=== PATIENT | female | born 1960 | race Caucasian/White ===

== ENCOUNTER → 2017-06-05 | Outpatient (CLI) | payer MEDICARE, OTHER ==
[~2017-06-05] MED LIST: ACET325 PO; ACETYLCYST200 MG/1 M INH; ALBUIS INH; ALPR.5; BUPR100; BUPR150ER PO; Bentyl20 MG PO; CARB200 PO; CEPH500 PO; CETI10; CHOL10002 PO; CITA20 PO; CLAR500; DIPATR PO; DIPH50 PO; DOC250; DOCCAL240 PO; DOCU100; DOXA4 PO; Duoneb 2.5-0.5 M3 ML INH; ESTR1 PO; ESTR2; ESTR2 PO; ESTRACE PO; Estradiol1 MG PO; FAMO20; FAMO20 PO; FEXO60 PO; FLUC150A; FLUN25SP; FLUSAL2505 INH; FLUT.05NI; Fludrocortison0.1 MG PO; GABA100; GABA300; GABA400 PO; GABA800 PO; HYDACE10B PO; HYDACE5 PO; HYOS0.375T; LINE600 PO; LORA1; MAALOX; MAGOXI400 PO; MECL25 PO; MEDRIN; METO5A PO; MOM; MORP15ER; MORP30ER; MYRBETRIQ50 MG PO; NITR100CA PO; NORT10; NORT50 PO; Norco 10-325 T1 EACH PO; OMEP20ER; OMEP20ER PO; OMEP40CA12 PO; ONDA4 PO; OXYACE5C; OXYACE5T PO; OXYB5 PO; OXYB5ER PO; OXYBUTYNIN PO; OXYC5; PARO20; PHENA200 PO; PHENY100ER; POLY500; POTCHL10ER PO; POTCHL20ER PO; PRED10; PROM25; PROM25 PO; PROM25S PO; Percocet 5-3251 EACH PO; QUIN260 PO; RXOXYACE PO; SAVELLA PO; SENN187 PO; TEMA15; TRAM50 PO; TRAZ100 PO; TRAZ50 PO; TRIHYD253A; TYLENOL; VALA500 PO; VENL75 PO; Vibramycin100 MG PO; ZPAK; [UNRECOGNIZED DRUG - OTHER] PO
[2017-06-06 12:09] LABS: Adenovirus F 40/41 Not Detected (NOT DETECT); Astrovirus Not Detected (NOT DETECT); Campylobacter Sp Not Detected (NOT DETECT); Cryptosporidium Not Detected (NOT DETECT); Cyclospora Cayetanensis Not Detected (NOT DETECT); E. Coli O157 Not Detected (NOT DETECT); Entamoeba Histolytica Not Detected (NOT DETECT); Enteroaggregative E. coli-EAEC Not Detected (NOT DETECT); Enteropathogenic E. coli-EPEC Not Detected (NOT DETECT); Enterotoxigenic E. coli-ETEC Not Detected (NOT DETECT); Giardia Lamblia Not Detected (NOT DETECT); Norovirus GI/GII Not Detected (NOT DETECT); Plesiomonas Shigelloides Not Detected (NOT DETECT); Rotavirus A Not Detected (NOT DETECT); Salmonella Sp Not Detected (NOT DETECT); Sapovirus Not Detected (NOT DETECT); Shiga Toxin-prod E. coli-STEC Not Detected (NOT DETECT); Shigella/Enteroin E. coli-EIEC Not Detected (NOT DETECT); Vibrio Cholerae Not Detected (NOT DETECT); Vibrio Sp Not Detected (NOT DETECT); Yersinia Enterocolitica Not Detected (NOT DETECT)
== END ==
LOC: LAB EV 15:00
PROVIDERS: Nurse Practitioner Family
DX: R19.7 Diarrhea, unspecified (principal)
CPT/HCPCS: 87507

== ENCOUNTER 2017-06-08 07:30 | Emergency (ER) | payer MEDICARE, OTHER ==
[~2017-06-08] VITALS: Ht 165.1 cm; Wt 68.0 kg
[~2017-06-08 07:30] MED LIST changes: -Bentyl20 MG PO; -Vibramycin100 MG PO
[2017-06-08] MEDS ORDERED: Bentyl20 MG PO (07:47)
[2017-06-08] MEDS ORDERED: Vibramycin100 MG PO (08:04)
== END 2017-06-08 08:10 | disposition home or self-care (01) ==
LOC: ER 07:30
DX: S00.462A Insect bite (nonvenomous) of left ear, initial encounter (principal); H60.12 Cellulitis of left external ear; I10 Essential (primary) hypertension; F17.210 Nicotine dependence, cigarettes, uncomplicated; Z88.0 Allergy status to penicillin; Z88.8 Allergy status to other drugs, medicaments and biological substances; Z88.2 Allergy status to sulfonamides; Z91.040 Latex allergy status; Z91.048 Other nonmedicinal substance allergy status; Z88.6 Allergy status to analgesic agent; Z91.018 Allergy to other foods; Z79.899 Other long term (current) drug therapy; W57.XXXA Bitten or stung by nonvenomous insect and other nonvenomous arthropods, initial encounter
CPT/HCPCS: 69200; 99282

== ENCOUNTER 2017-11-12 15:56 | Emergency (ER) | payer MEDICARE, OTHER ==
[~2017-11-12] VITALS: Ht 165.1 cm; Wt 62.6 kg
[~2017-11-12 15:56] MED LIST changes: +Bentyl20 MG PO; +Vibramycin100 MG PO
[2017-11-12 16:47] LABS: BASOPHILS ABSOLUTE AUTO 0.04 K/mm3 (0.00-0.23); BASOPHILS PERCENT AUTO 1 % (0-2); EOSINOPHILS PERCENT AUTO 1 % (0-6); Hematocrit 40.4 % (33.0-51.0); Hemoglobin 13.3 g/dL (11.5-16.0); IMMATURE GRAN ABSOLUTE AUTO 0.02 K/mm3 (0.00-0.10); IMMATURE GRAN PERCENT AUTO 0 % (0-1); LYMPHOCYTES ABSOLUTE AUTO 3.22 K/mm3 (0.84-5.20); LYMPHOCYTES PERCENT AUTO 39 % (21-46); MONOCYTES ABSOLUTE AUTO 0.43 K/mm3 (0.16-1.47); MONOCYTES PERCENT AUTO 5 % (4-13); Mean Corpuscular HGB 29.4 pg (26.0-34.0); Mean Corpuscular HGB Conc 32.9 g/dL (31.5-36.5); Mean Corpuscular Volume 89 fL (80-100); Mean Platelet Volume 8.6 fL (9.1-12.4); NEUTROPHILS ABSOLUTE AUTO 4.53 K/mm3 (1.96-9.15); NEUTROPHILS PERCENT AUTO 54 % (41-73); Platelet Count 355 K/mm3 (150-400); RDW Coefficient Variation 13.8 % (11.7-14.2); RDW Standard Deviation 44.9 fL (35.1-46.3); Red Blood Cell Count 4.53 M/mm3 (3.80-5.20); White Blood Cell Count 8.34 K/mm3 (4.00-11.30)
[2017-11-12 17:11] LABS: Alanine Aminotransfer (ALT/SGP 22 U/L (12-78); Alk Phos 68 U/L (50-136); Anion Gap 5 mmol/L (6-16); Aspartate Aminotrans (AST/SGOT 16 U/L (12-37); Bilirubin, Total 0.2 mg/dL (0.1-1.0); Blood Urea Nitrogen 16 mg/dL (8-24); Bun/Creatinine Ratio 17.5 (12.0-20.0); CO2, Blood 28 mmol/L (21-32); Calcium, Blood 8.9 mg/dL (8.5-10.1); Chloride, Blood 104 mmol/L (98-108); Creatinine, Blood 0.91 mg/dL (0.40-1.00); Globulin, Blood 3.9 g/dL (2.2-4.0); Glomerular Filtration Rate >60 (60-); Glucose, Blood 74 mg/dL (70-99); Potassium, Blood 3.7 mmol/L (3.5-5.5); Sodium, Blood 137 mmol/L (136-145); Total Protein, Blood 7.9 g/dL (6.4-8.2)
[2017-11-12] MEDS ORDERED: ESOM20 PO (17:56)
[2017-11-12] MEDS ORDERED: Percocet 5-3251 EACH PO (17:56)
== END 2017-11-12 18:10 | disposition home or self-care (01) ==
LOC: ER 15:56
PROVIDERS: Emergency Medicine
DX: K29.70 Gastritis, unspecified, without bleeding (principal); I10 Essential (primary) hypertension; G40.909 Epilepsy, unspecified, not intractable, without status epilepticus; F17.210 Nicotine dependence, cigarettes, uncomplicated; Z79.899 Other long term (current) drug therapy
CPT/HCPCS: 36415; 80053; 83690; 85025; 93005; 93010; 96374; 99284-25; J2405

== ENCOUNTER → 2018-09-01 | Outpatient (CLI) | payer OTHER, MEDICARE ==
[~2018-09-01] MED LIST changes: +ESOM20 PO
[2018-09-01 17:24] LABS: BASOPHILS ABSOLUTE AUTO 0.04 K/mm3 (0.00-0.23); BASOPHILS PERCENT AUTO 1 % (0-2); EOSINOPHILS ABSOLUTE AUTO 0.09 K/mm3 (0.00-0.68); EOSINOPHILS PERCENT AUTO 1 % (0-6); Hematocrit 39.1 % (33.0-51.0); Hemoglobin 13.2 g/dL (11.5-16.0); IMMATURE GRAN ABSOLUTE AUTO 0.02 K/mm3 (0.00-0.10); IMMATURE GRAN PERCENT AUTO 0 % (0-1); LYMPHOCYTES ABSOLUTE AUTO 3.22 K/mm3 (0.84-5.20); LYMPHOCYTES PERCENT AUTO 52 % (21-46); MONOCYTES ABSOLUTE AUTO 0.41 K/mm3 (0.16-1.47); MONOCYTES PERCENT AUTO 7 % (4-13); Mean Corpuscular HGB 30.2 pg (26.0-34.0); Mean Corpuscular HGB Conc 33.8 g/dL (31.5-36.5); Mean Corpuscular Volume 90 fL (80-100); NEUTROPHILS ABSOLUTE AUTO 2.45 K/mm3 (1.96-9.15); NEUTROPHILS PERCENT AUTO 39 % (41-73); Platelet Count 344 K/mm3 (150-400); RDW Coefficient Variation 13.3 % (11.7-14.2); RDW Standard Deviation 43.8 fL (35.1-46.3); Red Blood Cell Count 4.37 M/mm3 (3.80-5.20); White Blood Cell Count 6.23 K/mm3 (4.00-11.30)
[2018-09-01 17:43] LABS: Alanine Aminotransfer (ALT/SGP 18 U/L (12-78); Albumin, Blood 3.7 g/dL (3.4-5.0); Albumin/Globulin Ratio 1.1 (0.8-1.8); Alk Phos 75 U/L (40-126); Anion Gap 7 mmol/L (6-16); Aspartate Aminotrans (AST/SGOT 14 U/L (12-37); Bilirubin, Total 0.2 mg/dL (0.1-1.0); Blood Urea Nitrogen 14 mg/dL (8-24); Bun/Creatinine Ratio 12.7 (12.0-20.0); CO2, Blood 30 mmol/L (21-32); Calcium, Blood 8.6 mg/dL (8.5-10.1); Chloride, Blood 106 mmol/L (98-108); Globulin, Blood 3.4 g/dL (2.2-4.0); Glomerular Filtration Rate 51 (60-); Glucose, Blood 90 mg/dL (70-99); Potassium, Blood 3.3 mmol/L (3.5-5.5); Sodium, Blood 143 mmol/L (136-145); Thyroid Stimulating Hormone 1.044 uIU/mL (0.360-4.800); Total Protein, Blood 7.1 g/dL (6.4-8.2)
[2018-09-01 17:45] LABS: Troponin I <0.017 ng/mL (0.000-0.040)
== END | disposition home or self-care (01) ==
LOC: LAB EV 17:19 → LAB SHORT 17:19
PROVIDERS: Family Medicine
DX: R53.83 Other fatigue (principal)
CPT/HCPCS: 80053; 84443; 84484; 85025

== ENCOUNTER → 2020-09-28 | Outpatient (CLI) | payer OTHER ==
[2020-09-28 14:13] LABS: BASOPHILS ABSOLUTE AUTO 0.05 K/mm3 (0.00-0.23); BASOPHILS PERCENT AUTO 0 % (0-2); Hematocrit 39.4 % (33.0-51.0); Hemoglobin 13.2 g/dL (11.5-16.0); LYMPHOCYTES ABSOLUTE AUTO 0.92 K/mm3 (0.84-5.20); LYMPHOCYTES PERCENT AUTO 4 % (21-46); MONOCYTES ABSOLUTE AUTO 0.65 K/mm3 (0.16-1.47); MONOCYTES PERCENT AUTO 3 % (4-13); Mean Corpuscular HGB 30.8 pg (26.0-34.0); Mean Corpuscular HGB Conc 33.5 g/dL (31.5-36.5); Mean Corpuscular Volume 92 fL (80-100); Mean Platelet Volume 8.9 fL (9.1-12.4); Platelet Count 293 K/mm3 (150-400); RDW Coefficient Variation 13.9 % (11.7-14.2); RDW Standard Deviation 46.6 fL (35.1-46.3); Red Blood Cell Count 4.29 M/mm3 (3.80-5.20); White Blood Cell Count 22.15 K/mm3 (4.00-11.30)
[2020-09-28 14:14] LABS: EOSINOPHILS ABSOLUTE AUTO 0.11 K/mm3 (0.00-0.68); EOSINOPHILS PERCENT AUTO 1 % (0-6); IMMATURE GRAN ABSOLUTE AUTO 0.22 K/mm3 (0.00-0.10); IMMATURE GRAN PERCENT AUTO 1 % (0-1); NEUTROPHILS PERCENT AUTO 91 % (41-73)
[2020-09-28 14:18] LABS: Anion Gap 7 mmol/L (6-16); Blood Urea Nitrogen 21 mg/dL (8-24); Bun/Creatinine Ratio 23.6 (12.0-20.0); CO2, Blood 28 mmol/L (21-32); Calcium, Blood 8.8 mg/dL (8.5-10.1); Chloride, Blood 103 mmol/L (98-108); Creatinine, Blood 0.89 mg/dL (0.40-1.00); Glomerular Filtration Rate >60 (60-); Glucose, Blood 150 mg/dL (70-99); Sodium, Blood 138 mmol/L (136-145)
== END ==
LOC: PLD 14:08 → LAB SHORT 14:08
PROVIDERS: Physician Assistant Surgical
DX: R05 Cough (principal); Z88.0 Allergy status to penicillin; Z88.2 Allergy status to sulfonamides; Z88.6 Allergy status to analgesic agent; Z91.048 Other nonmedicinal substance allergy status; Z91.040 Latex allergy status; Z91.018 Allergy to other foods; Z88.5 Allergy status to narcotic agent
CPT/HCPCS: 80048; 85025

== ENCOUNTER → 2020-09-29 | Outpatient (CLI) | payer OTHER ==
[2020-09-29 11:53] LABS: BASOPHILS ABSOLUTE AUTO 0.04 K/mm3 (0.00-0.23); BASOPHILS PERCENT AUTO 0 % (0-2); EOSINOPHILS ABSOLUTE AUTO 0.08 K/mm3 (0.00-0.68); EOSINOPHILS PERCENT AUTO 1 % (0-6); Hematocrit 36.6 % (33.0-51.0); Hemoglobin 12.3 g/dL (11.5-16.0); IMMATURE GRAN ABSOLUTE AUTO 0.07 K/mm3 (0.00-0.10); IMMATURE GRAN PERCENT AUTO 0 % (0-1); LYMPHOCYTES ABSOLUTE AUTO 3.02 K/mm3 (0.84-5.20); LYMPHOCYTES PERCENT AUTO 19 % (21-46); MONOCYTES ABSOLUTE AUTO 0.75 K/mm3 (0.16-1.47); MONOCYTES PERCENT AUTO 5 % (4-13); Mean Corpuscular HGB 30.8 pg (26.0-34.0); Mean Corpuscular HGB Conc 33.6 g/dL (31.5-36.5); Mean Corpuscular Volume 92 fL (80-100); Mean Platelet Volume 8.8 fL (9.1-12.4); NEUTROPHILS ABSOLUTE AUTO 12.24 K/mm3 (1.96-9.15); NEUTROPHILS PERCENT AUTO 76 % (41-73); Platelet Count 302 K/mm3 (150-400); RDW Standard Deviation 46.5 fL (35.1-46.3)
[2020-09-29 11:57] LABS: Anion Gap 6 mmol/L (6-16); Blood Urea Nitrogen 24 mg/dL (8-24); Bun/Creatinine Ratio 29.6 (12.0-20.0); CO2, Blood 29 mmol/L (21-32); Calcium, Blood 8.6 mg/dL (8.5-10.1); Chloride, Blood 105 mmol/L (98-108); Creatinine, Blood 0.81 mg/dL (0.40-1.00); Glomerular Filtration Rate >60 (60-); Glucose, Blood 93 mg/dL (70-99); Potassium, Blood 3.8 mmol/L (3.5-5.5); Sodium, Blood 140 mmol/L (136-145)
== END ==
LOC: LAB 11:47 → LAB SHORT 11:47
PROVIDERS: Physician Assistant Surgical
DX: J18.9 Pneumonia, unspecified organism (principal); Z88.0 Allergy status to penicillin; Z88.2 Allergy status to sulfonamides; Z88.6 Allergy status to analgesic agent; Z88.5 Allergy status to narcotic agent; Z91.048 Other nonmedicinal substance allergy status; Z91.040 Latex allergy status; Z91.018 Allergy to other foods
CPT/HCPCS: 80048; 85025

== ENCOUNTER → 2020-09-30 | Outpatient (CLI) | payer OTHER ==
[2020-09-30 11:46] LABS: BASOPHILS ABSOLUTE AUTO 0.06 K/mm3 (0.00-0.23); BASOPHILS PERCENT AUTO 1 % (0-2); EOSINOPHILS ABSOLUTE AUTO 0.15 K/mm3 (0.00-0.68); EOSINOPHILS PERCENT AUTO 1 % (0-6); Hematocrit 34.2 % (33.0-51.0); Hemoglobin 11.4 g/dL (11.5-16.0); IMMATURE GRAN ABSOLUTE AUTO 0.06 K/mm3 (0.00-0.10); IMMATURE GRAN PERCENT AUTO 1 % (0-1); LYMPHOCYTES ABSOLUTE AUTO 2.75 K/mm3 (0.84-5.20); LYMPHOCYTES PERCENT AUTO 24 % (21-46); MONOCYTES ABSOLUTE AUTO 0.76 K/mm3 (0.16-1.47); MONOCYTES PERCENT AUTO 7 % (4-13); Mean Corpuscular HGB 30.6 pg (26.0-34.0); Mean Corpuscular HGB Conc 33.3 g/dL (31.5-36.5); Mean Corpuscular Volume 92 fL (80-100); Mean Platelet Volume 8.7 fL (9.1-12.4); NEUTROPHILS ABSOLUTE AUTO 7.85 K/mm3 (1.96-9.15); NEUTROPHILS PERCENT AUTO 68 % (41-73); Platelet Count 269 K/mm3 (150-400); RDW Coefficient Variation 13.9 % (11.7-14.2); RDW Standard Deviation 46.6 fL (35.1-46.3); Red Blood Cell Count 3.73 M/mm3 (3.80-5.20); White Blood Cell Count 11.63 K/mm3 (4.00-11.30)
== END ==
LOC: LAB SHORT 11:42 → LAB 11:42
PROVIDERS: Physician Assistant Medical
DX: R07.81 Pleurodynia (principal); Z88.0 Allergy status to penicillin; Z88.2 Allergy status to sulfonamides; Z88.1 Allergy status to other antibiotic agents; Z88.6 Allergy status to analgesic agent; Z91.048 Other nonmedicinal substance allergy status; Z91.040 Latex allergy status; Z91.018 Allergy to other foods; Z20.822 Contact with and (suspected) exposure to COVID-19
CPT/HCPCS: 85025; 85379; U0003

== ENCOUNTER → 2021-06-03 | Outpatient (CLI) | payer OTHER ==
[~2021-06-03] MED LIST changes: +ALBU4 PO; +LIDO700A20 TOP; +NAPROXEN250 M1 PO; +Prilosec Otc20 MG PO; +SERT25 PO; +Ventolin5 MG/1 ML INH
== END | disposition home or self-care (01) ==
LOC: LAB SHORT 14:01 → LAB 14:01
DX: M79.672 Pain in left foot (principal)
CPT/HCPCS: 84550

== ENCOUNTER 2021-08-04 11:40 | Emergency (ER) | payer OTHER ==
[~2021-08-04] VITALS: Ht 165.1 cm; Wt 66.2 kg
[2021-08-04 12:14] LABS: BASOPHILS ABSOLUTE AUTO 0.02 K/mm3 (0.00-0.23); BASOPHILS PERCENT AUTO 0 % (0-2); EOSINOPHILS ABSOLUTE AUTO 0.02 K/mm3 (0.00-0.68); EOSINOPHILS PERCENT AUTO 0 % (0-6); Hemoglobin 13.2 g/dL (11.5-16.0); IMMATURE GRAN ABSOLUTE AUTO 0.02 K/mm3 (0.00-0.10); IMMATURE GRAN PERCENT AUTO 0 % (0-1); LYMPHOCYTES ABSOLUTE AUTO 2.14 K/mm3 (0.84-5.20); LYMPHOCYTES PERCENT AUTO 30 % (21-46); MONOCYTES ABSOLUTE AUTO 0.44 K/mm3 (0.16-1.47); MONOCYTES PERCENT AUTO 6 % (4-13); Mean Corpuscular HGB 29.3 pg (26.0-34.0); Mean Corpuscular HGB Conc 32.2 g/dL (31.5-36.5); Mean Corpuscular Volume 91 fL (80-100); NEUTROPHILS ABSOLUTE AUTO 4.58 K/mm3 (1.96-9.15); NEUTROPHILS PERCENT AUTO 63 % (41-73); Platelet Count 218 K/mm3 (150-400); RDW Coefficient Variation 13.8 % (11.7-14.2); RDW Standard Deviation 46.1 fL (35.1-46.3); Red Blood Cell Count 4.51 M/mm3 (3.80-5.20); White Blood Cell Count 7.22 K/mm3 (4.00-11.30)
[2021-08-04 12:34] LABS: Albumin, Blood 3.1 g/dL (3.4-5.0); Albumin/Globulin Ratio 0.8 (0.8-1.8); Bilirubin, Total 0.4 mg/dL (0.1-1.0); Bun/Creatinine Ratio 20.8 (12.0-20.0); Calcium, Blood 8.6 mg/dL (8.5-10.1); Creatinine, Blood 0.77 mg/dL (0.40-1.00); Globulin, Blood 4.1 g/dL (2.2-4.0); Potassium, Blood 3.8 mmol/L (3.5-5.5); Total Protein, Blood 7.2 g/dL (6.4-8.2)
[2021-08-04 13:05] LABS: Influenza A, PCR NEGATIVE (NEGATIVE); Influenza B, PCR NEGATIVE (NEGATIVE); Resp Syncytial Virus, PCR NEGATIVE (NEGATIVE)
[2021-08-04 13:13] LABS: SARS-Cov-2 (COVID-19) PCR, MMC POSITIVE (NEGATIVE)
[2021-08-04] MEDS ORDERED: Prednisone50 MG PO (16:29)
[2021-08-04] MEDS ORDERED: HYDR1TAB94 PO (16:29)
== END 2021-08-04 16:48 | disposition home or self-care (01) ==
LOC: ER 11:40
PROVIDERS: Physician Assistant
DX: U07.1 COVID-19 (principal); I10 Essential (primary) hypertension; G40.909 Epilepsy, unspecified, not intractable, without status epilepticus; F17.210 Nicotine dependence, cigarettes, uncomplicated; Z79.899 Other long term (current) drug therapy; Z88.6 Allergy status to analgesic agent; Z91.040 Latex allergy status; Z88.0 Allergy status to penicillin; Z88.2 Allergy status to sulfonamides; Z88.8 Allergy status to other drugs, medicaments and biological substances; Z91.018 Allergy to other foods; Z91.09 Other allergy status, other than to drugs and biological substances
CPT/HCPCS: 0241U; 36415; 71045; 80053; 83690; 85025; A9270; J1200; J2405; J2765; J7030; J7512

== ENCOUNTER → 2021-08-09 | Outpatient (CLI) | payer OTHER ==
[~2021-08-09] MED LIST changes: +HYDR1TAB94 PO; +Prednisone50 MG PO
[2021-08-09 14:55] LABS: BASOPHILS ABSOLUTE AUTO 0.01 K/mm3 (0.00-0.23); BASOPHILS PERCENT AUTO 0 % (0-2); EOSINOPHILS PERCENT AUTO 0 % (0-6); Hematocrit 34.9 % (33.0-51.0); Hemoglobin 11.5 g/dL (11.5-16.0); IMMATURE GRAN ABSOLUTE AUTO 0.19 K/mm3 (0.00-0.10); IMMATURE GRAN PERCENT AUTO 2 % (0-1); LYMPHOCYTES ABSOLUTE AUTO 0.95 K/mm3 (0.84-5.20); LYMPHOCYTES PERCENT AUTO 12 % (21-46); MONOCYTES ABSOLUTE AUTO 0.16 K/mm3 (0.16-1.47); MONOCYTES PERCENT AUTO 2 % (4-13); Mean Corpuscular HGB 29.6 pg (26.0-34.0); Mean Corpuscular Volume 90 fL (80-100); Mean Platelet Volume 8.4 fL (9.1-12.4); NEUTROPHILS ABSOLUTE AUTO 6.92 K/mm3 (1.96-9.15); NEUTROPHILS PERCENT AUTO 84 % (41-73); Platelet Count 440 K/mm3 (150-400); RDW Standard Deviation 45.7 fL (35.1-46.3); Red Blood Cell Count 3.88 M/mm3 (3.80-5.20); White Blood Cell Count 8.23 K/mm3 (4.00-11.30)
[2021-08-09 15:04] LABS: Albumin, Blood 2.9 g/dL (3.4-5.0); Albumin/Globulin Ratio 0.8 (0.8-1.8); Bilirubin, Total 0.2 mg/dL (0.1-1.0); Bun/Creatinine Ratio 26.8 (12.0-20.0); Calcium, Blood 8.2 mg/dL (8.5-10.1); Creatinine, Blood 0.82 mg/dL (0.40-1.00); Globulin, Blood 3.5 g/dL (2.2-4.0); Potassium, Blood 3.9 mmol/L (3.5-5.5); Total Protein, Blood 6.4 g/dL (6.4-8.2)
== END | disposition home or self-care (01) ==
LOC: LAB SHORT 14:49
PROVIDERS: Chiropractor
DX: E86.0 Dehydration (principal); R51.9 Headache, unspecified
CPT/HCPCS: 80053; 85025; 85379

== ENCOUNTER → 2022-08-09 | Outpatient (CLI) | payer OTHER ==
[~2022-08-09] MED LIST changes: +LEVOFLOXACIN750 MG PO; +PHENERGAN25 MG PR
[2022-08-09 14:03] LABS: BASOPHILS ABSOLUTE AUTO 0.05 K/mm3 (0.00-0.23); BASOPHILS PERCENT AUTO 0 % (0-2); EOSINOPHILS ABSOLUTE AUTO 0.36 K/mm3 (0.00-0.68); EOSINOPHILS PERCENT AUTO 3 % (0-6); Hematocrit 40.9 % (33.0-51.0); Hemoglobin 13.5 g/dL (11.5-16.0); IMMATURE GRAN ABSOLUTE AUTO 0.07 K/mm3 (0.00-0.10); IMMATURE GRAN PERCENT AUTO 1 % (0-1); LYMPHOCYTES ABSOLUTE AUTO 3.46 K/mm3 (0.84-5.20); LYMPHOCYTES PERCENT AUTO 28 % (21-46); MONOCYTES ABSOLUTE AUTO 0.78 K/mm3 (0.16-1.47); MONOCYTES PERCENT AUTO 6 % (4-13); Mean Corpuscular HGB 30.6 pg (26.0-34.0); Mean Corpuscular Volume 93 fL (80-100); Mean Platelet Volume 8.3 fL (9.1-12.4); NEUTROPHILS ABSOLUTE AUTO 7.55 K/mm3 (1.96-9.15); NEUTROPHILS PERCENT AUTO 62 % (41-73); Platelet Count 417 K/mm3 (150-400); RDW Coefficient Variation 14.9 % (11.7-14.2); RDW Standard Deviation 51.1 fL (35.1-46.3); Red Blood Cell Count 4.41 M/mm3 (3.80-5.20); White Blood Cell Count 12.27 K/mm3 (4.00-11.30)
[2022-08-09 14:17] LABS: Albumin, Blood 3.5 g/dL (3.4-5.0); Bilirubin, Total 0.3 mg/dL (0.1-1.0); Bun/Creatinine Ratio 26.9 (12.0-20.0); Calcium, Blood 8.9 mg/dL (8.5-10.1); Creatinine, Blood 0.78 mg/dL (0.40-1.00); Globulin, Blood 3.4 g/dL (2.2-4.0); Total Protein, Blood 6.9 g/dL (6.4-8.2)
== END | disposition home or self-care (01) ==
LOC: LAB 13:58 → LAB SHORT 13:58
PROVIDERS: Chiropractor
DX: R00.2 Palpitations (principal)
CPT/HCPCS: 80053; 84484; 85025; 85379

== ENCOUNTER → 2024-09-17 | Outpatient (CLI) | payer MEDICARE, OTHER ==
[~2024-09-17] MED LIST changes: +AZIT250 PO; +CEFP200 PO
== END ==
LOC: LAB SHORT 16:45 → LAB 16:45
DX: R30.0 Dysuria (principal)
CPT/HCPCS: 87086

== ENCOUNTER 2024-10-30 11:58 | Emergency (ER) | payer MEDICARE, OTHER ==
[~2024-10-30] VITALS: Ht 165.1 cm; Wt 63.5 kg
[2024-10-30 13:20] LABS: BASOPHILS ABSOLUTE AUTO 0.07 K/mm3 (0.00-0.23); BASOPHILS PERCENT AUTO 0 % (0-2); EOSINOPHILS ABSOLUTE AUTO 0.03 K/mm3 (0.00-0.68); EOSINOPHILS PERCENT AUTO 0 % (0-6); Hematocrit 36.6 % (33.0-51.0); Hemoglobin 12.1 g/dL (11.5-16.0); IMMATURE GRAN ABSOLUTE AUTO 0.13 K/mm3 (0.00-0.10); IMMATURE GRAN PERCENT AUTO 1 % (0-1); LYMPHOCYTES ABSOLUTE AUTO 2.12 K/mm3 (0.84-5.20); LYMPHOCYTES PERCENT AUTO 13 % (21-46); MONOCYTES ABSOLUTE AUTO 1.16 K/mm3 (0.16-1.47); MONOCYTES PERCENT AUTO 7 % (4-13); Mean Corpuscular HGB Conc 33.1 g/dL (31.5-36.5); Mean Corpuscular Volume 92 fL (80-100); NEUTROPHILS ABSOLUTE AUTO 12.84 K/mm3 (1.96-9.15); NEUTROPHILS PERCENT AUTO 79 % (41-73); NRBC ABSOLUTE 0.00 K/mm3 (0.00-0.02); NRBC Auto 0.0 /100 WBC (0.0-0.2); Platelet Count 377 K/mm3 (150-400); RDW Coefficient Variation 13.5 % (11.7-14.2); RDW Standard Deviation 45.3 fL (35.1-46.3)
[2024-10-30 13:25] LABS: Alanine Aminotransfer (ALT/SGP 21.0 U/L (12-78); Albumin, Blood 2.8 g/dL (3.4-5.0); Albumin/Globulin Ratio 0.7 (0.8-1.8); Anion Gap 6.0 mmol/L (3-11); Aspartate Aminotrans (AST/SGOT 22.0 U/L (12-37); Bilirubin, Total 0.5 mg/dL (0.1-1.0); Blood Urea Nitrogen 14.0 mg/dL (8-24); CO2, Blood 27.0 mmol/L (21-32); Calcium, Blood 8.3 mg/dL (8.5-10.1); Chloride, Blood 106.0 mmol/L (98-108); Creatinine, Blood 0.66 mg/dL (0.40-1.00); Globulin, Blood 4.0 g/dL (2.2-4.0); Glucose, Blood 77.0 mg/dL (70-99); Potassium, Blood 3.1 mmol/L (3.5-5.5); Sodium, Blood 136.0 mmol/L (136-145); Total Protein, Blood 6.8 g/dL (6.4-8.2)
[2024-10-30 17:32] LABS: Source, Urine Clean Catch
[2024-10-30 17:51] LABS: Bilirubin, Urine Neg (Neg); Color, Urine Yellow (P-Yellow); Glucose Qualitative, Urine Neg (Neg); Ketones, Urine 3+ (Neg); Leukocyte Esterase, Urine 1+ (Neg); Protein, Urine 2+ (Neg); Specific Gravity, Urine 1.015 (1.003-1.022); Urobilinogen, Urine 1+ (Normal)
[2024-10-30 18:36] LABS: Red Blood Cells, Urine 0-2 /hpf (0-2)
[2024-10-30] MEDS ORDERED: Ondansetron HCl 2 MG / ML 2ML Vial IV ONE (19:35)
[2024-10-30] MEDS ORDERED: CefTRIAXone Sodium 1,000 MG in NS 100 ML IV ONE (19:35)
[2024-10-30] MEDS ORDERED: NS 1,000 ML IV SCH (19:35)
[2024-10-30 21:13] VITALS: BP 117/68
[2024-10-30] MEDS ORDERED: LEVOFLOXACIN750 M3 PO (21:17)
== END 2024-10-30 22:37 | disposition home or self-care (01) ==
LOC: ER 11:58
PROVIDERS: Student in an Organized Health Care Education/Training Program
DX: J18.9 Pneumonia, unspecified organism (principal); E86.0 Dehydration; R11.0 Nausea; J44.9 Chronic obstructive pulmonary disease, unspecified; I10 Essential (primary) hypertension; F17.210 Nicotine dependence, cigarettes, uncomplicated; Z79.52 Long term (current) use of systemic steroids; Z79.899 Other long term (current) drug therapy; Z88.0 Allergy status to penicillin; Z88.2 Allergy status to sulfonamides; Z88.6 Allergy status to analgesic agent; Z91.040 Latex allergy status; Z91.018 Allergy to other foods; Z88.8 Allergy status to other drugs, medicaments and biological substances
CPT/HCPCS: 71046; 80053; 81001; 83690; 84484; 85025; 87086; 93005; 93010; 96365; 96367; 96375; 99285-25; J0456; J0696; J2405; J7030; J7050

== ENCOUNTER 2025-01-08 06:26 | Inpatient (IN) | payer MEDICARE, OTHER ==
[~2025-01-08] VITALS: Ht 165.1 cm; Wt 65.8 kg
[~2025-01-08 06:26] MED LIST changes: +LEVOFLOXACIN750 M3 PO
[2025-01-08] MEDS ORDERED: Ondansetron HCl 2 MG / ML 2ML Vial IV ONE ×2 (07:15→10:55)
[2025-01-08] MEDS ORDERED: Ketorolac Tromethamine 30mg Vial IV ONE (07:20)
[2025-01-08 07:43] LABS: BASOPHILS ABSOLUTE AUTO 0.05 K/mm3 (0.00-0.23); BASOPHILS PERCENT AUTO 0 % (0-2); EOSINOPHILS ABSOLUTE AUTO 0.08 K/mm3 (0.00-0.68); EOSINOPHILS PERCENT AUTO 1 % (0-6); Hematocrit 47.3 % (33.0-51.0); Hemoglobin 16.2 g/dL (11.5-16.0); IMMATURE GRAN ABSOLUTE AUTO 0.09 K/mm3 (0.00-0.10); IMMATURE GRAN PERCENT AUTO 1 % (0-1); LYMPHOCYTES ABSOLUTE AUTO 2.24 K/mm3 (0.84-5.20); LYMPHOCYTES PERCENT AUTO 13 % (21-46); MONOCYTES ABSOLUTE AUTO 1.18 K/mm3 (0.16-1.47); MONOCYTES PERCENT AUTO 7 % (4-13); Mean Corpuscular HGB Conc 34.2 g/dL (31.5-36.5); Mean Corpuscular Volume 90 fL (80-100); NEUTROPHILS ABSOLUTE AUTO 13.53 K/mm3 (1.96-9.15); NEUTROPHILS PERCENT AUTO 79 % (41-73); NRBC ABSOLUTE 0.00 K/mm3 (0.00-0.02); NRBC Auto 0.0 /100 WBC (0.0-0.2); Platelet Count 525 K/mm3 (150-400); RDW Coefficient Variation 13.5 % (11.7-14.2); RDW Standard Deviation 44.3 fL (35.1-46.3)
[2025-01-08 07:55] LABS: Alanine Aminotransfer (ALT/SGP 25.0 U/L (12-78); Albumin, Blood 3.6 g/dL (3.4-5.0); Albumin/Globulin Ratio 0.8 (0.8-1.8); Anion Gap 11.0 mmol/L (3-11); Aspartate Aminotrans (AST/SGOT 20.0 U/L (12-37); Bilirubin, Total 0.8 mg/dL (0.1-1.0); Blood Urea Nitrogen 21.0 mg/dL (8-24); CO2, Blood 25.0 mmol/L (21-32); Calcium, Blood 9.9 mg/dL (8.5-10.1); Chloride, Blood 104.0 mmol/L (98-108); Creatinine, Blood 0.87 mg/dL (0.40-1.00); Globulin, Blood 4.3 g/dL (2.2-4.0); Glucose, Blood 160.0 mg/dL (70-99); Magnesium, Blood 2.1 mg/dL (1.6-2.4); Potassium, Blood 4.0 mmol/L (3.5-5.5); Sodium, Blood 136.0 mmol/L (136-145); Total Protein, Blood 7.9 g/dL (6.4-8.2)
[2025-01-08 08:00] LABS: Source, Urine Straight Cath
[2025-01-08 08:07] LABS: Color, Urine Amber (P-Yellow); Glucose Qualitative, Urine Neg (Neg); Ketones, Urine 3+ (Neg); Leukocyte Esterase, Urine 1+ (Neg); Protein, Urine 2+ (Neg); Specific Gravity, Urine 1.025 (1.003-1.022); Urobilinogen, Urine 1+ (Normal)
[2025-01-08 08:13] LABS: Influenza A, PCR NEGATIVE (NEGATIVE); Influenza B, PCR NEGATIVE (NEGATIVE); Resp Syncytial Virus, PCR NEGATIVE (NEGATIVE); SARS-Cov-2 (COVID-19) PCR, MMC NEGATIVE (NEGATIVE)
[2025-01-08 08:17] LABS: Bilirubin, Urine 2+ (Neg)
[2025-01-08 08:18] LABS: Red Blood Cells, Urine 0-2 /hpf (0-2)
[2025-01-08] MEDS ORDERED: Lidocaine 2% Jelly Uro-Jet TOP ONE (08:45)
--- NOTE | 2025-01-08 10:41 | NUR ---
pt arrived to rm 229 on gurney from ed PT WRITHING IN PAIN AND NAUSEA. SPOUSE BEDSIDE. PLACED MSG TO DR EDGE FOR ORDERS.
[2025-01-08 11:01] VITALS: BP 141/88
[2025-01-08] MEDS ORDERED: HYDROmorphone HCl/Pf 1MG SYR IV ONE (11:20)
[2025-01-08] MEDS ORDERED: PANT20 PO (11:45)
[2025-01-08] MEDS ORDERED: PROM25 PO (11:47)
[2025-01-08] MEDS ORDERED: ONDA4ODT MM (11:48)
[2025-01-08] MEDS ORDERED: TIZA4 PO (11:51)
[2025-01-08] MEDS ORDERED: HYDROmorphone HCl/Pf 1MG SYR IV PRN (12:15)
[2025-01-08] MEDS ORDERED: Ondansetron HCl 2 MG / ML 2ML Vial IV PRN (12:15)
[2025-01-08] MEDS ORDERED: NS 250 ML IV PRN (13:00)
[2025-01-08] MEDS ORDERED: MetroNIDAZOLE 500MG/NS 100 ml 100 ML IV SCH (13:00)
[2025-01-08] MEDS ORDERED: Pantoprazole Sodium 40 MG Injection IV SCH (13:00)
[2025-01-08] MEDS ORDERED: CefTRIAXone Sodium 1,000 MG in NS 100 ML IV SCH (13:00)
--- NOTE | 2025-01-08 13:35 | NUR ---
dr gruber in to see pt.
[2025-01-08] MEDS ORDERED: DICL75ER PO (13:42)
[2025-01-08 14:05] LABS: Campylobacter Sp Not Detected (NOT DETECT); Salmonella Sp Not Detected (NOT DETECT); Vibrio Sp Not Detected (NOT DETECT)
[2025-01-08 14:06] LABS: E. Coli O157 Not Detected (NOT DETECT); Enteroaggregative E. coli-EAEC Not Detected (NOT DETECT); Enteropathogenic E. coli-EPEC Not Detected (NOT DETECT); Enterotoxigenic E. coli-ETEC Detected (NOT DETECT); Shiga Toxin-prod E. coli-STEC Not Detected (NOT DETECT); Shigella/Enteroin E. coli-EIEC Not Detected (NOT DETECT)
[2025-01-08] MEDS ORDERED: NS 1,000 ML IV SCH (14:30)
[2025-01-08] MEDS ORDERED: Ciprofloxacin 400MG/D5 200ML 200 ML IV SCH (15:00)
[2025-01-08] MEDS ORDERED: ESZO2 PO (15:13)
[2025-01-08] MEDS ORDERED: FAMO20 PO (15:15)
[2025-01-08] MEDS ORDERED: MYRBETRIQ50 MG PO (15:16)
[2025-01-08] MEDS ORDERED: OMEP20ER PO (15:17)
[2025-01-08] MEDS ORDERED: PANT40 PO (15:19)
[2025-01-08] MEDS ORDERED: POTA10T PO (15:21)
[2025-01-08] MEDS ORDERED: ROFL500T PO (15:21)
[2025-01-08] MEDS ORDERED: SERT100 PO (15:22)
[2025-01-08] MEDS ORDERED: 1/2 NS 250ml250 ML (15:23)
[2025-01-08] MEDS ORDERED: TIZANIDINE HCL2 MG PO (15:24)
[2025-01-08] MEDS ORDERED: TRAM50 PO (15:25)
[2025-01-08] MEDS ORDERED: TRELEGY ELLIPT1 EAC1 INH ×2 (15:26→15:27)
[2025-01-08 15:56] VITALS: BP 126/70
--- NOTE | 2025-01-08 16:47 | NUR ---
SUMMARY PT ARRIVED TO UNIT FROM ED THIS AM. NG HOOKED TO LIS AND DRAINING BROWN LIQUID FROM R NARES. PT CONTINUES TO HAVE INTERMITTENT NAUSEA; MEDICATED PER ORDERS W/ZOFRAN. PT REPORTS INTERMITTENT ABDOMINAL PAIN, MEDICATED PER ORDERS W/DILAUDID. STOOL SAMPLE SENT, PT NOW IN ISOLATION FOR ENTEROTOXIGENIC ECOLI. PT GETS ANXIOUS W/NAUSEA AND/OR PAIN. PT HAS HX OF TBI. RESTING IN BED, CALL LIGHT IN REACH.
--- NOTE | 2025-01-08 17:28 | NUR ---
TURNED OVER CARE TO ZOE Conley RN.
[2025-01-08 19:19] VITALS: BP 125/77
[2025-01-08] MEDS ORDERED: Metoclopramide HCl 5MG / ML 2ML Vial IV PRN (21:40)
--- NOTE | 2025-01-08 22:18 | NUR ---
CIPRO DELAY PER PHARMACY: OK TO DELAY 2100 DOSE TO 2300 TO SPACE FROM EARLIER DOSE IN DAY AND GET TO CORRECT SPACING FOR 0900/2100
--- NOTE | 2025-01-09 05:52 | NUR ---
SHIFT SUMMARY DURING SHIFT PT HAD SEVERE PAIN AND NAUSEA. PT NG TUBE TO LIS WITH APPROXIMATELY 800mL OUT SINCE ARRIVAL TO UNIT. PT LOUDLY C/O PAIN/NAUSEA AND CALL MADE TO PROVIDER FOR XRAY VERIFICATION OF PLACEMENT; PENDING READ OF THIS NOTE. AFTER XRAY, PT BEGAN TO HAVE MULTIPLE STOOLS PROGRESSING FROM LIQUID TO SOFT. PT REPORTS FEELING RELIEF AFTER BM; BM URGENCY AND PT WEARING BRIEF AT THIS TIME.
[2025-01-09 07:25] VITALS: BP 113/61
--- NOTE | 2025-01-09 12:40 | NUR ---
pt ngt dc'd per orders pt tolerated well.
[2025-01-09 13:32] LABS: BASOPHILS ABSOLUTE AUTO 0.04 K/mm3 (0.00-0.23); BASOPHILS PERCENT AUTO 0 % (0-2); EOSINOPHILS ABSOLUTE AUTO 0.04 K/mm3 (0.00-0.68); EOSINOPHILS PERCENT AUTO 0 % (0-6); Hematocrit 38.6 % (33.0-51.0); Hemoglobin 12.6 g/dL (11.5-16.0); IMMATURE GRAN ABSOLUTE AUTO 0.04 K/mm3 (0.00-0.10); IMMATURE GRAN PERCENT AUTO 0 % (0-1); LYMPHOCYTES ABSOLUTE AUTO 2.49 K/mm3 (0.84-5.20); LYMPHOCYTES PERCENT AUTO 24 % (21-46); MONOCYTES ABSOLUTE AUTO 0.77 K/mm3 (0.16-1.47); MONOCYTES PERCENT AUTO 7 % (4-13); Mean Corpuscular HGB Conc 32.6 g/dL (31.5-36.5); Mean Corpuscular Volume 92 fL (80-100); NEUTROPHILS ABSOLUTE AUTO 7.08 K/mm3 (1.96-9.15); NEUTROPHILS PERCENT AUTO 68 % (41-73); NRBC ABSOLUTE 0.00 K/mm3 (0.00-0.02); NRBC Auto 0.0 /100 WBC (0.0-0.2); Platelet Count 321 K/mm3 (150-400); RDW Coefficient Variation 13.6 % (11.7-14.2); RDW Standard Deviation 46.4 fL (35.1-46.3)
[2025-01-09] MEDS ORDERED: Misc. Inhaler INH SCH (13:45)
[2025-01-09 13:49] LABS: Magnesium, Blood 1.9 mg/dL (1.6-2.4)
[2025-01-09 13:54] LABS: Alanine Aminotransfer (ALT/SGP 22.0 U/L (12-78); Albumin, Blood 2.8 g/dL (3.4-5.0); Albumin/Globulin Ratio 0.9 (0.8-1.8); Anion Gap 7.0 mmol/L (3-11); Aspartate Aminotrans (AST/SGOT 20.0 U/L (12-37); Bilirubin, Total 0.5 mg/dL (0.1-1.0); Blood Urea Nitrogen 20.0 mg/dL (8-24); CO2, Blood 28.0 mmol/L (21-32); Calcium, Blood 8.0 mg/dL (8.5-10.1); Chloride, Blood 108.0 mmol/L (98-108); Creatinine, Blood 0.67 mg/dL (0.40-1.00); Globulin, Blood 3.0 g/dL (2.2-4.0); Glucose, Blood 93.0 mg/dL (70-99); Potassium, Blood 2.6 mmol/L (3.5-5.5); Sodium, Blood 140.0 mmol/L (136-145)
[2025-01-09 13:55] LABS: Total Protein, Blood 5.8 g/dL (6.4-8.2)
[2025-01-09 15:23] VITALS: BP 123/74
--- NOTE | 2025-01-09 17:17 | NUR ---
SHIFT SUMMARY ADMITTED ON 01/08 FOR SBO. NG TUBE DC'D TODAY. MILD NAUSEA CONTROLLED PER EMAR. CONTACT PRECAUTIONS IN PLACE. CONTINOUS O2 MONITOR w/SATS >93%. EPISODES OF URGENCY INCONTINENCE, ATTENDS IN PLACE. POTASSIUM LOW - NOTIFIED MD EDGE - ORDERS FOR IV POTASSIUM PLACED. PAIN CONTROLLED WELL PER EMAR. CURRENTLY RESTING IN BED w/CALL LIGHT WITHIN REACH.
[2025-01-09 19:26] VITALS: BP 146/87
[2025-01-10 04:50] VITALS: BP 154/91
[2025-01-10] MEDS ORDERED: BACL10 PO (07:31)
--- NOTE | 2025-01-10 07:32 | NUR ---
SHIFT SUMMARY NO ACUTE EVENTS OVERNIGHT. PT REPORTS NAUSEA AND PAIN ARE BETTER THAN PREVIOUS NOC SHIFT. TOWARDS END OF SHIFT, PT DOES REPORT BACK PAIN TO DOG BATHER. PT UP TO BSC FOR BATHROOM ASSISTANCE WITH STAFF.
[2025-01-10 07:55] VITALS: BP 148/74
[2025-01-10] MEDS ORDERED: Misc. Tablet PO SCH (09:00)
[2025-01-10] MEDS ORDERED: HYDROmorphone HCl/Pf 1MG SYR IV PRN (09:30)
[2025-01-10 12:00] LABS: Anion Gap 10.0 mmol/L (3-11); Blood Urea Nitrogen 11.0 mg/dL (8-24); CO2, Blood 21.0 mmol/L (21-32); Calcium, Blood 8.0 mg/dL (8.5-10.1); Chloride, Blood 111.0 mmol/L (98-108); Creatinine, Blood 0.55 mg/dL (0.40-1.00); Glucose, Blood 75.0 mg/dL (70-99); Potassium, Blood 3.3 mmol/L (3.5-5.5); Sodium, Blood 139.0 mmol/L (136-145)
[2025-01-10] MEDS ORDERED: Naloxone HCl 0.4MG / ML 1ML Vial IV PRN (13:35)
[2025-01-10] MEDS ORDERED: HYDROcodone 5-APAP 325 TAB PO PRN (15:00)
[2025-01-10] MEDS ORDERED: Ketorolac Tromethamine 15mg Vial IV PRN (15:20)
[2025-01-10] MEDS ORDERED: Lidocaine 4% 1 Patch TOP SCH (15:35)
[2025-01-10 18:34] VITALS: BP 145/76
--- NOTE | 2025-01-10 18:41 | NUR ---
SHIFT SUMMARY ADMITTED ON 01/08 FOR SBO. A&O x4, VSS. ADVANCED TO CLEAR LIQUID DIET TODAY - TOLERATING WELL. SOME OF HOME MED PAIN MGMT REGIMEN ORDERED TODAY - CONTROLLED WELL PER EMAR. STATES RELIEF OF CHRONIC BACK PAIN w/LIDOCAINE PATCH APPLIED. VOIDING. SEVERAL EPISODES OF NAUSEA - STATES HX CHRONIC NAUSEA, CONTROLLED WELL PER EMAR. AMBULATES TO BEDSIDE COMMODE w/1PA FOR VOID. CURRENTLY RESTING IN BED w/CALL LIGHT WITHIN REACH.
[2025-01-10 19:13] VITALS: BP 138/72
[2025-01-11 03:41] VITALS: BP 135/68
--- NOTE | 2025-01-11 04:07 | NUR ---
SHIFT SUMMARY NO ACUTE CHANGES TO REPORT OVERNIGHT. PT HAS RESTED T/O THE NIGHT. INTERMITTENT NAUSEA AND PAIN CONTROLLED PER EMAR. PT AMBUALTES WITH 1 PA TO BSC. VITALS STABLE. PLAN OF CARE REMAINS UNCHANGED. BED IN LOWEST POSITION, CALL LIGHT WITHIN REACH.
[2025-01-11 04:59] LABS: BASOPHILS ABSOLUTE AUTO 0.02 K/mm3 (0.00-0.23); BASOPHILS PERCENT AUTO 0 % (0-2); EOSINOPHILS ABSOLUTE AUTO 0.01 K/mm3 (0.00-0.68); EOSINOPHILS PERCENT AUTO 0 % (0-6); Hematocrit 33.2 % (33.0-51.0); Hemoglobin 11.3 g/dL (11.5-16.0); IMMATURE GRAN ABSOLUTE AUTO 0.04 K/mm3 (0.00-0.10); IMMATURE GRAN PERCENT AUTO 0 % (0-1); LYMPHOCYTES ABSOLUTE AUTO 1.48 K/mm3 (0.84-5.20); LYMPHOCYTES PERCENT AUTO 13 % (21-46); MONOCYTES ABSOLUTE AUTO 1.29 K/mm3 (0.16-1.47); MONOCYTES PERCENT AUTO 12 % (4-13); Mean Corpuscular HGB Conc 34.0 g/dL (31.5-36.5); Mean Corpuscular Volume 90 fL (80-100); NEUTROPHILS ABSOLUTE AUTO 8.34 K/mm3 (1.96-9.15); NEUTROPHILS PERCENT AUTO 75 % (41-73); NRBC ABSOLUTE 0.00 K/mm3 (0.00-0.02); NRBC Auto 0.0 /100 WBC (0.0-0.2); Platelet Count 243 K/mm3 (150-400); RDW Coefficient Variation 13.1 % (11.7-14.2); RDW Standard Deviation 42.9 fL (35.1-46.3)
[2025-01-11 05:29] LABS: Anion Gap 12.0 mmol/L (3-11); Blood Urea Nitrogen 7.0 mg/dL (8-24); CO2, Blood 21.0 mmol/L (21-32); Calcium, Blood 7.7 mg/dL (8.5-10.1); Chloride, Blood 107.0 mmol/L (98-108); Creatinine, Blood 0.57 mg/dL (0.40-1.00); Glucose, Blood 81.0 mg/dL (70-99); Potassium, Blood 3.0 mmol/L (3.5-5.5); Sodium, Blood 137.0 mmol/L (136-145)
[2025-01-11 07:15] VITALS: BP 135/71
[2025-01-11] MEDS ORDERED: Enoxaparin 40 MG/0.4 ML SYR SC SCH (09:00)
[2025-01-11] MEDS ORDERED: Lidocaine 4% 1 Patch TOP SCH (09:00)
[2025-01-11 14:22] VITALS: BP 137/88
--- NOTE | 2025-01-11 17:36 | NUR ---
SHIFT SUMMARY ADMITTED FOR SBO. A&O x4, VSS. ADVANCED DIET TODAY - TOLERATING FULL LIQUID DIET WELL. SEVERAL EPISODES OF NAUSEA TODAY - STATES HX. BASELINE NAUSEA, CONTROLLED WELL PER EMAR. PAIN CONTROLLED WELL PER EMAR. ABLE TO AMB TO BEDSIDE COMMODE FOR VOID. STATES PASSING GAS & HAD BM TODAY. CURRENTLY RESTING IN BED w/CALL LIGHT WITHIN REACH.
[2025-01-11 19:41] VITALS: BP 128/69
--- NOTE | 2025-01-12 04:37 | NUR ---
SHIFT SUMMARY PT HAS RESTED T/O THE NIGHT, PAIN AND NAUSEA MANAGED PER EMAR. PT AMBULATING TO BSC WITH 1 PA. PT PASSING GAS, NO BM THIS SHIFT. TAKING IN FULL LIQUIDS. VITALS STABLE. PLAN OF CARE REMAINS UNCHANGED. BED IN LOWEST POSITION, CALL LIGHT WITHIN REACH.
[2025-01-12 05:04] VITALS: BP 132/74
[2025-01-12 05:33] LABS: BASOPHILS ABSOLUTE AUTO 0.03 K/mm3 (0.00-0.23); BASOPHILS PERCENT AUTO 0 % (0-2); EOSINOPHILS ABSOLUTE AUTO 0.03 K/mm3 (0.00-0.68); EOSINOPHILS PERCENT AUTO 0 % (0-6); Hematocrit 33.4 % (33.0-51.0); Hemoglobin 11.4 g/dL (11.5-16.0); IMMATURE GRAN ABSOLUTE AUTO 0.03 K/mm3 (0.00-0.10); IMMATURE GRAN PERCENT AUTO 0 % (0-1); LYMPHOCYTES ABSOLUTE AUTO 1.82 K/mm3 (0.84-5.20); LYMPHOCYTES PERCENT AUTO 26 % (21-46); MONOCYTES ABSOLUTE AUTO 0.80 K/mm3 (0.16-1.47); MONOCYTES PERCENT AUTO 11 % (4-13); Mean Corpuscular HGB Conc 34.1 g/dL (31.5-36.5); Mean Corpuscular Volume 89 fL (80-100); NEUTROPHILS ABSOLUTE AUTO 4.38 K/mm3 (1.96-9.15); NEUTROPHILS PERCENT AUTO 62 % (41-73); NRBC ABSOLUTE 0.00 K/mm3 (0.00-0.02); NRBC Auto 0.0 /100 WBC (0.0-0.2); Platelet Count 245 K/mm3 (150-400); RDW Coefficient Variation 13.0 % (11.7-14.2); RDW Standard Deviation 42.5 fL (35.1-46.3)
[2025-01-12 05:59] LABS: Anion Gap 5.0 mmol/L (3-11); Blood Urea Nitrogen 7.0 mg/dL (8-24); CO2, Blood 28.0 mmol/L (21-32); Calcium, Blood 8.2 mg/dL (8.5-10.1); Chloride, Blood 109.0 mmol/L (98-108); Creatinine, Blood 0.58 mg/dL (0.40-1.00); Glucose, Blood 99.0 mg/dL (70-99); Potassium, Blood 3.2 mmol/L (3.5-5.5); Sodium, Blood 139.0 mmol/L (136-145)
[2025-01-12 07:18] VITALS: BP 137/74
[2025-01-12] MEDS ORDERED: Ipratropium/Albuterol SulF 2.5-0.5MG/3 ML Amp INH PRN (10:05)
--- NOTE | 2025-01-12 17:59 | NUR ---
SHIFT SUMMARY PT IS A/OX4. TOLERATING PO INTAKE. PT IS VOIDING WELL AND HAVING BM. NO EMESIS STATES NAUSEA IS NO WORSE THAN NORMAL. PAIN MANAGED PER EMAR, ENCOURAGED REPOSITIONING/HEAT AND/OR ICE APPLICATION. NO ACUTE CHANGES, VSS. CALL LIGHT IN REACH.
[2025-01-12 19:48] VITALS: BP 108/65
[2025-01-13 04:39] VITALS: BP 125/74
[2025-01-13 07:11] VITALS: BP 114/74
--- NOTE | 2025-01-13 07:35 | NUR ---
SUMMARY PT REPORTS REGLAN EFFECTIVE FOR NAUSEA, PAIN MEDS EFFECTIVE FOR NAUSEA,HOPING TO GO HOME TODAY,VOIDING WITHOUT DIFF.
[2025-01-13 10:52] LABS: Anion Gap 8.0 mmol/L (3-11); Blood Urea Nitrogen 9.0 mg/dL (8-24); CO2, Blood 27.0 mmol/L (21-32); Calcium, Blood 7.8 mg/dL (8.5-10.1); Chloride, Blood 108.0 mmol/L (98-108); Creatinine, Blood 0.56 mg/dL (0.40-1.00); Glucose, Blood 138.0 mg/dL (70-99); Potassium, Blood 3.5 mmol/L (3.5-5.5); Sodium, Blood 139.0 mmol/L (136-145)
[2025-01-13 14:29] VITALS: BP 131/68
--- NOTE | 2025-01-13 17:54 | NUR ---
SUMMARY NO ACUTE CHANGES T/O SHIFT. PT PLEASANT AND COOPERATIVE. CALL LIGHT IN REACH. MEDICATED PER ORDERS T/O SHIFT FOR CHRONIC PAIN AND NAUSEA.
[2025-01-13 19:09] VITALS: BP 127/80
[2025-01-14 03:43] VITALS: BP 122/71
--- NOTE | 2025-01-14 05:52 | NUR ---
BUSINESS DEVELOPMENT RECRUITER SUMMARY PT AAOX4 AND PLEASANT. TOLERATING DIET WELL. NO BM TONIGHT BUT PT HAS BEEN UP TO BSC TO VOID SEVERAL TIMES. PAIN MANAGED WITH PO MEDS AND NAUSEA MEDS GIVEN WELL FOR CHRONIC NAUSEA. NO ACUTE CHANGES NOTED. VSS, WCTM.
[2025-01-14 07:30] VITALS: BP 110/61
[2025-01-14 15:24] VITALS: BP 129/75
--- NOTE | 2025-01-14 18:04 | NUR ---
SHIFT SUMMARY PT A&OX3-4. PT HX OF TBI, DOESN'T KNOW BIRTHDAY BUT CAN ANSWER ALL OTHER ORIENTING QUESTIONS. PT ADMITTED DUE TO SBO. PT REPORTS NO SOB/ NO CHEST PAIN. PT REPORTS CHRONIC PAIN IN BACK AND PAIN IN ABD. PAIN MANAGED PER EMAR. PT HAS LIDOCAINE PATCH ON BACK. PT REPORTS NAUSEA, NAUSEA MANAGED PER EMAR. PT IS SBA TO BSC. PT REPORTS BURNING SENSATION WHEN PEEING. PT NOT EATING MUCH. PT REPORTS "THE FOOD SUCKS." PT OFFERED TO CALL IN FOR FOOD REQUEST FOR TOMORROW. PT HAD ABD OF X-RAY TODAY. RESULTS BACK. PT VSS. PT GETTING IV ANTIBIOTICS Q6. PT IN BED, BED LOCKED, IN LOWEST POSITION. CALL LIGHT IN REACH.
[2025-01-14 19:08] VITALS: BP 134/78
[2025-01-15 04:00] LABS: BASOPHILS ABSOLUTE AUTO 0.04 K/mm3 (0.00-0.23); BASOPHILS PERCENT AUTO 1 % (0-2); EOSINOPHILS ABSOLUTE AUTO 0.09 K/mm3 (0.00-0.68); EOSINOPHILS PERCENT AUTO 2 % (0-6); Hematocrit 34.7 % (33.0-51.0); Hemoglobin 11.3 g/dL (11.5-16.0); IMMATURE GRAN ABSOLUTE AUTO 0.02 K/mm3 (0.00-0.10); IMMATURE GRAN PERCENT AUTO 0 % (0-1); LYMPHOCYTES ABSOLUTE AUTO 2.38 K/mm3 (0.84-5.20); LYMPHOCYTES PERCENT AUTO 44 % (21-46); MONOCYTES ABSOLUTE AUTO 0.52 K/mm3 (0.16-1.47); MONOCYTES PERCENT AUTO 10 % (4-13); Mean Corpuscular HGB Conc 32.6 g/dL (31.5-36.5); Mean Corpuscular Volume 92 fL (80-100); NEUTROPHILS ABSOLUTE AUTO 2.39 K/mm3 (1.96-9.15); NEUTROPHILS PERCENT AUTO 44 % (41-73); NRBC ABSOLUTE 0.00 K/mm3 (0.00-0.02); NRBC Auto 0.0 /100 WBC (0.0-0.2); Platelet Count 324 K/mm3 (150-400); RDW Coefficient Variation 13.3 % (11.7-14.2); RDW Standard Deviation 45.5 fL (35.1-46.3)
[2025-01-15 04:21] LABS: Anion Gap 7.0 mmol/L (3-11); Blood Urea Nitrogen 8.0 mg/dL (8-24); CO2, Blood 28.0 mmol/L (21-32); Calcium, Blood 8.3 mg/dL (8.5-10.1); Chloride, Blood 109.0 mmol/L (98-108); Creatinine, Blood 0.73 mg/dL (0.40-1.00); Glucose, Blood 114.0 mg/dL (70-99); Potassium, Blood 3.4 mmol/L (3.5-5.5); Sodium, Blood 141.0 mmol/L (136-145)
[2025-01-15 04:27] VITALS: BP 115/67
--- NOTE | 2025-01-15 05:20 | NUR ---
SHIFT SUMMARY AOX4. REPORTS SHE IS FORGETFUL @TIMES R/T HX OF TBI. DOES RESPOND TO QUESTIONS APPROPRIATE & ABLE TO FOLLOW DIRECTIONS. REPORTS CONSTANT 7/10 R LOW ABD/SIDE PAIN. STATES PAIN IS BETTER W/LEGS ELEVATED OR AFTER PAIN MEDS. MEDICATED 2x W/PO NORCO & PT ABLE TO REST W/O COMPLAINTS OF DISCOMFORT. STATES SHE HAS CONSTANT NAUSEA, NO EMESIS THIS SHIFT, MEDICATED 1x W/ZOFRAN. TOLERATING DIET, HOWEVER COMPLAINS OF FOOD OFFERED, SYD LIQUIDS. VOIDING, REPORTS BURNING W/URINATION & STATES SHE NORMALLY TAKES DIFLUCAN @HOME TO ASSIST W/THIS. NO BM THIS SHIFT. PT STATES SOMETIMES SHE NORMALLY DOESNT HAVE A BM UP TO 10+ DAYS. CALL LIGHT IN REACH & PT ABLE TO MAKE NEEDS KNOWN.
[2025-01-15 07:07] VITALS: BP 117/71
--- NOTE | 2025-01-15 11:05 | NUR ---
NOTE PT REPORTED BURNING WHILE SHE PEES. PT REPORTS "I TAKE DIFLUCIN 75MG X2 A DAY AT HOME." PT POTASSIUM WAS 3.4 THIS AM. THIS RN NOTIFIED DR. LOVE. AWAITING NEW ORDERS. XRAY SHOWED RESOLVED SBO, NOTIFIED MD. DR. LOVE REPORTED "WILL GIVE POTASSIUM REPLACEMENT. PT WILL BE DISCHARGED TODAY."
[2025-01-15] MEDS ORDERED: PAIN RELIEF PA1 EACH TOP (11:48)
--- NOTE | 2025-01-15 14:11 | NUR ---
DISCHARGE NOTE PT A&0X3-4. PT HX OF TBI, DOESN'T KNOW BIRTHDAY BUT CAN ANSWER ALL OTHER ORIENTING QUESTIONS. PT ADMITTED DUE TO SBO. PT REPORTS NO SOB/CHEST PAIN. PT REPORTS CHRONIC PAIN IN BACK AND PAIN IN ABD. PAIN MANAGED PER EMAR AND HEAT THERAPY. PT HAS LIDOCAINE PATCH ON BACK. PT REPORTS NAUSEA, NAUSEA MANAGED PER EMAR. PT IS SBA TO BS. PT REPORTS BURNING SENSATION WHEN PEEING, PT EATING MORE TODAY. ORDERED DISCHARGE. MEDS FAXED TO PHARMACY. THIS RN WENT OVER DISCHARGE INSTRUCTIONS AND MEDS. SURGICAL ENDOSCOPIST COMPLETED DISCHARGE. VSS THROUGH SHIFT. PT GOT SHOWERED TODAY. CAME TO AUCTION ASSISTANT PT. PT ESCORTED TO PT ENTERANCE BY THIS RN.
== END 2025-01-15 13:35 | disposition home or self-care (01) | DRG 389 ==
LOC: ER 06:26 → SURS 06:27
PROVIDERS: Family Medicine; Student in an Organized Health Care Education/Training Program; ADMIT Internal Medicine
PROC: 3E03329 Introduction of Other Anti-infective into Peripheral Vein, Percutaneous Approach (ICD-10-PCS; principal; 2025-01-08)
PROC: 0D9670Z Drainage of Stomach with Drainage Device, Via Natural or Artificial Opening (ICD-10-PCS; 2025-01-09)
DX: K56.600 Partial intestinal obstruction, unspecified as to cause (principal); A04.4 Other intestinal Escherichia coli infections; F11.20 Opioid dependence, uncomplicated; Z87.820 Personal history of traumatic brain injury; Z79.52 Long term (current) use of systemic steroids; M54.9 Dorsalgia, unspecified; I10 Essential (primary) hypertension; G40.909 Epilepsy, unspecified, not intractable, without status epilepticus; J44.9 Chronic obstructive pulmonary disease, unspecified; Z91.51 Personal history of suicidal behavior; D64.9 Anemia, unspecified; Z90.49 Acquired absence of other specified parts of digestive tract; Z90.710 Acquired absence of both cervix and uterus; E87.6 Hypokalemia; Z98.890 Other specified postprocedural states; F17.210 Nicotine dependence, cigarettes, uncomplicated; Z88.2 Allergy status to sulfonamides; Z91.040 Latex allergy status; Z88.6 Allergy status to analgesic agent; Z91.018 Allergy to other foods; Z88.8 Allergy status to other drugs, medicaments and biological substances; Z88.0 Allergy status to penicillin; F32.9 Major depressive disorder, single episode, unspecified; G89.4 Chronic pain syndrome
CPT/HCPCS: 36415; 51701; 71045; 74018; 74177; 80048; 80053; 81001; 83605; 83690; 83735; 84484; 85025; 87086; 87507; 87637; 93005; 93010; 94640; 94664; 94762; 96361; 96365; 96366; 96367; 96374-59; 96375; 96375-59; 96376; 99285-25; A9270; G0378; J0744; J1171; J1650; J1885; J2405; J2470; J2765; J3480; J7030; J7050; J7120; Q9967